=== PATIENT | female | born 1980 ===

== ENCOUNTER 2018-05-11 20:47 | Inpatient (IN) | payer MEDICAID ==
[~2018-05-11] VITALS: Ht 172.7 cm; Wt 153.3 kg
--- NOTE | ~2018-05-11 | MORECARE ---
CASE MANAGEMENT DISCHARGE SUMMARY PATIENT: RILEY CURRIE UNIT: [id number] ADM DATE: 05/11/18 AGE: 37 : [birth year] SEX: F ROOM/BED: D.2206 AUTHOR: SOILA,DOC PHYSICIAN: REFERRING PHYSICIAN: JARRETT HAWTHORNE MD DATE OF SERVICE: 06/12/18 Discharge Plan Patient Name: RILEY CURRIE Facility: [facility]:[place] : 1980 Planned Disposition: Home Anticipated Discharge Date: Discharge Date: 06/09/2018 Expected LOS: Initial Reviewer: [email or web address] Initial Review Date: 05/16/2018 Generated: 06/12/18 12:19 pm Comments DCP- Discharge Planning Updated by [email or web address]: Najma Jones on 06/09/18 2:[address] patient is discharging home today, family will pick patient up. Nebulizer has been delivered to the hospital. [facility] in [place] has accepted patient and will admit her. No sullpies needed per dr bonds, CM will continue to follow and assist with dc planning as needed DCP- Discharge Planning Updated by [email or web address]: Najma Jones on 06/08/18 1:[address] referral sent to [facility] in [place], spoke with Mitesh ) Clinical info sent, will need to send dc summary and home health order when received. Faxed to [phone]. CM will continue to follow and assist with DC planning DCP- Discharge Planning Updated by [email or web address]: Najma Jones on 06/08/18 11:[address] ORDER SENT TO [facility] FOR A NEBULIZER, PATIENT WOULD LIKE IN [place], WILL SET THAT UP FOR HER. DCP- Discharge Planning Updated by [email or web address]: Audrey Leyva on 06/05/18 1:[address] CM was informed by nursing staff that patient's 15yo daughter has been living at the hospital and is staying in the ICU waiting room during non-visitation hours without adult supervision. Staff reports child does not have any means to obtain food and they are worried about her. CM met with patient and her daughter and explained that the child can not stay at the hospital unsupervised. Patient was previously informed of this and was supposed to have a family member milk pickup driver the child this weekend. Patient called her sister who agreed to come milk pickup driver the child today around 16:30. CM informed patient that if the child is not picked up by 17:00 that CM will call [facility]. Patient verbalized understanding but with lots of profanity stated she was not going to let the hospital call DHS on her child. CM will continue to follow. DCP- Discharge Planning Updated by [email or web address]: Sweetieleanne Pike on 05/30/18 12:[address] CM met with sister Shanna Mathis while in room with patient. Patient is alert but still on vent via trach. Explained that patient will only be accepted to an LTACH facility on a freedom bed basis. Because patient only has Medicaid and it doesn't cover LTACH. CM explained that if the patient still needed help once she is off vent then that NH placement maybe an option. Sister agreed that if she had to go to NH she would like it to be in [place]. CM will continue to follow and assist as needed with discharge planning/ needs. DCP- Discharge Planning Updated by [email or web address]: Aaliyah Varghese on 05/16/18 2:[address] Patient Name: RILEY CURRIE Admission Status: Accout number: [id number] Admission Date: 05-11-2018 : 1980 Admission Diagnosis:ACUTE RESPIRATORY FAILURE WITH HYPERCAPNIA Attending: JARRETT HAWTHORNE Current LOS: 5 Anticipated DC Date: Planned Disposition: Primary Insurance: MEDICAID [place] Discharge Planning Comments: Patient is on ventilator. CM met with patient's sister Declan about dc planning. States unsure of the plan at this time, she hopes she will dc to home. The patient and family members live in [place] area. CM will follow and assist as needed with dc planning/needs. Picking Machine Operator: Aaliyah Varghese DCPIA - Discharge Planning Initial Assessment Updated by [email or web address]: Aaliyah Varghese on 05/16/18 3:42 pm * Is the patient Alert and Oriented? No * PCP Hilaria * [facility] in [place] * Preadmission Environment Home with Family * ADLs Independent * List name and contact numbers for known caregivers / representatives who currently or will assist patient after discharge: sister Manriquez, * Has this patient been hospitalized within the prior 30 days at any hospital? No Last DP export: 06/09/18 2:26 Patient Name: RILEY CURRIE Page [id number] at 1119 All edits/amendments must be made on the electronic document DICTATION DATE: 06/12/181117 NAUTICAL INSTRUMENT MECHANIC: EFRA 06/12/181117 RPT#: [id number] DC DATE:06/09/18 STATUS: DIS IN [facility] [address] [place] [address] END OF REPORT
--- NOTE | ~2018-05-11 | OP ---
PATIENT NAME: RILEY CURRIE MEDICAL RECORD: [id number] :80 LOCATION:[facility] D.[id number] ADMISSION DATE:05/11/18 SURGEON: CARMELO GARLAND MD DATE OF OPERATION: 05/18/2018 PREOPERATIVE DIAGNOSES: 1. Acute respiratory failure on the ventilator. 2. Pneumonia. 3. Morbid obesity. POSTOPERATIVE DIAGNOSES: 1. Acute respiratory failure on the ventilator. 2. Pneumonia. 3. Morbid obesity. PROCEDURE: 8-Greenlandic percutaneous tracheostomy placement. SURGEON: Carmelo Garland MD REPORT OF PROCEDURE: The patient's neck was prepped and draped in sterile fashion and a bronchoscope was advanced through the endotracheal tube, it was indwelling and this was backed up into position. A skin incision was made longitudinally in the midline, a couple of fingerbreadths above the sternal notch. Using blunt dissection, I could feel down to what appeared to be the cricopharyngeal ring. We inserted an Angiocath needle under direct visualization, a couple of rings below this. A guidewire was then advanced with ease. Over this wire, a small dilator was placed. At this point, there was some venous blood flow that was noted around the neck. We went ahead and advanced the white Rhino dilator and the 8-Greenlandic endotracheal tube. These advanced through with ease and rested in good position. At this point, the bleeding discontinued. The balloon was inflated and we continued a bronchoscopy removing any blood clots that were present in the trachea. At the conclusion of the case, we sutured down the trach with 2-0 Prolenes on all 4 corners and there was no sign of any active surgical bleeding. COMPLICATIONS: None. CONDITION: Stable. ANESTHESIA: General endotracheal. BLOOD LOSS: 50 mL. TRANSINT:[id number] Voice Confirmation ID: [id number] DOCUMENT ID: [id number] CARMELO GARLAND MD at 1714 CC: [id number] DICTATION DATE: 05/18/18 1547 CHILD WELFARE DIRECTOR: 05/18/18 1556 ADM IN [facility] [address] [place] [address]
--- NOTE | ~2018-05-11 | MORECARE ---
CASE MANAGEMENT DISCHARGE SUMMARY PATIENT: RILEY CURRIE UNIT: [id number] ADM DATE: 05/11/18 AGE: 37 : [birth year] SEX: F ROOM/BED: D.2206 AUTHOR: SOILA,DOC PHYSICIAN: REFERRING PHYSICIAN: JARRETT HAWTHORNE MD DATE OF SERVICE: 06/09/18 Discharge Plan Patient Name: RILEY CURRIE Facility: [facility]:[place] : 1980 Planned Disposition: Home Anticipated Discharge Date: Discharge Date: Expected LOS: Initial Reviewer: [email or web address] Initial Review Date: 05/16/2018 Generated: 06/09/18 4:26 pm Comments DCP- Discharge Planning Updated by [email or web address]: Najma Jones on 06/09/18 2:[address] patient is discharging home today, family will pick patient up. Nebulizer has been delivered to the hospital. [facility] in [place] has accepted patient and will admit her. No sullpies needed per dr bonds, CM will continue to follow and assist with dc planning as needed DCP- Discharge Planning Updated by [email or web address]: Najma Jones on 06/08/18 1:[address] referral sent to [facility] in [place], spoke with Mitesh ) Clinical info sent, will need to send dc summary and home health order when received. Faxed to [phone]. CM will continue to follow and assist with DC planning DCP- Discharge Planning Updated by [email or web address]: Najma Jones on 06/08/18 11:[address] ORDER SENT TO [facility] FOR A NEBULIZER, PATIENT WOULD LIKE IN [place], WILL SET THAT UP FOR HER. DCP- Discharge Planning Updated by [email or web address]: Audrey Leyva on 06/05/18 1:[address] CM was informed by nursing staff that patient's 15yo daughter has been living at the hospital and is staying in the ICU waiting room during non-visitation hours without adult supervision. Staff reports child does not have any means to obtain food and they are worried about her. CM met with patient and her daughter and explained that the child can not stay at the hospital unsupervised. Patient was previously informed of this and was supposed to have a family member picker packer the child this weekend. Patient called her sister who agreed to come picker packer the child today around 16:30. CM informed patient that if the child is not picked up by 17:00 that CM will call [facility]. Patient verbalized understanding but with lots of profanity stated she was not going to let the hospital call DHS on her child. CM will continue to follow. DCP- Discharge Planning Updated by [id number]: Sweetie Pike on 05/30/18 12:[address] CM met with sister Shanna Mathis while in room with patient. Patient is alert but still on vent via trach. Explained that patient will only be accepted to an LTACH facility on a freedom bed basis. Because patient only has Medicaid and it doesn't cover LTACH. CM explained that if the patient still needed help once she is off vent then that NH placement maybe an option. Sister agreed that if she had to go to NH she would like it to be in [place]. CM will continue to follow and assist as needed with discharge planning/ needs. DCP- Discharge Planning Updated by [id number]: Aaliyah Varghese on 05/16/18 2:[address] Patient Name: RILEY CURRIE Admission Status: Accout number: [id number] Admission Date: 05-11-2018 : 1980 Admission Diagnosis:ACUTE RESPIRATORY FAILURE WITH HYPERCAPNIA Attending: JARRETT HAWTHORNE Current LOS: 5 Anticipated DC Date: Planned Disposition: Primary Insurance: MEDICAID [place] Discharge Planning Comments: Patient is on ventilator. CM met with patient's sister Declan about dc planning. States unsure of the plan at this time, she hopes she will dc to home. The patient and family members live in [place] area. CM will follow and assist as needed with dc planning/needs. Dopeman: Aaliyah Varghese DCPIA - Discharge Planning Initial Assessment Updated by [email or web address]: Aaliyah Halima on 05/16/18 3:42 pm * Is the patient Alert and Oriented? No * PCP Hilaria * [facility] in [place] * Preadmission Environment Home with Family * ADLs Independent * List name and contact numbers for known caregivers / representatives who currently or will assist patient after discharge: Declan, sister, * Has this patient been hospitalized within the prior 30 days at any hospital? No Last DP export: 06/08/18 1:24 Patient Name: RILEY CURRIE Page [id number] at 1526 All edits/amendments must be made on the electronic document DICTATION DATE: 06/09/181525 TERRAZZO WORKER: EFRA 06/09/181525 RPT#: [id number] DC DATE: STATUS: ADM IN [facility] [address] [place] [address] END OF REPORT
[2018-05-11 22:31] VITALS: BP 84/73; BMI 50.0
[2018-05-11] MEDS ORDERED: TEGRETOL 100 M100 MG (22:40)
[2018-05-11] MEDS ORDERED: NORCO 7.5/325 T1 TA1 (22:41)
[2018-05-11 23:00] VITALS: BP 103/61
[2018-05-11 23:30] VITALS: BP 123/72
[2018-05-11 23:36] LABS: CREATINE KINASE 73 UL (21-215); PRO BNP 535 pg/mL (0-125)
[2018-05-11 23:38] LABS: TROPONIN-I < 0.017 ng/mL (0.000-0.060)
[2018-05-11 23:42] LABS: BASOPHILS 0.1 % (0-2); EOSINOPHILS 0 % (0-7); HEMATOCRIT 38.1 % (36.0-48.0); HEMOGLOBIN 12.3 g/dL (12-16); IMMATURE GRANULOCYTES 0.9 % (0-5); LYMPHOCYTES 13.7 % (15-50); MCH 30.1 pg (26.0-34.0); MCHC 32.3 g/dL (31.0-37.0); MCV 93.4 fL (80.0-100.0); MEAN PLATELET VOLUME 9.4 fL (7.4-10.4); MONOCYTES 5.7 % (2-11); NEUTROPHILS 79.6 % (40-80); PLATELET COUNT 332 10x3/uL (130-400); RBC 4.08 10x6/uL (4.00-5.40); RDW 14.2 % (11.5-14.5); WBC 13.8 10x3/uL (4.8-10.8)
[2018-05-12] VITALS (26 sets, daily range): BP systolic 106–159; BP diastolic 45–100; Ht 172.7 cm; Wt 153.3 kg
[2018-05-12 00:13] LABS: ALBUMIN 2.6 g/dL (3.4-5.0); ANION GAP 13.7 mmol/L (8-16); BILIRUBIN - TOTAL 0.25 mg/dL (0.2-1.3); CALCIUM 7.4 mg/dL (8.5-10.1); CREATININE - SERUM 1.2 mg/dL (0.6-1.3); POTASSIUM - SERUM 3.7 mmol/L (3.5-5.1); PROTEIN - SERUM 7.2 g/dL (6.4-8.2)
[2018-05-13] VITALS (25 sets, daily range): BP systolic 109–155; BP diastolic 51–88
[2018-05-13 05:10] LABS: BASOPHILS 0.1 % (0-2); EOSINOPHILS 1.1 % (0-7); HEMATOCRIT 34.2 % (36.0-48.0); HEMOGLOBIN 10.9 g/dL (12-16); IMMATURE GRANULOCYTES 0.4 % (0-5); LYMPHOCYTES 20.1 % (15-50); MCH 29.5 pg (26.0-34.0); MCHC 31.9 g/dL (31.0-37.0); MCV 92.7 fL (80.0-100.0); MEAN PLATELET VOLUME 9.5 fL (7.4-10.4); MONOCYTES 7.1 % (2-11); NEUTROPHILS 71.2 % (40-80); PLATELET COUNT 296 10x3/uL (130-400); RBC 3.69 10x6/uL (4.00-5.40)
[2018-05-13 05:24] LABS: WBC 9.1 10x3/uL (4.8-10.8)
[2018-05-13 05:38] LABS: ALBUMIN 2.2 g/dL (3.4-5.0); ALKALINE PHOSPHATASE 56 U/L (46-116); ALT (SGPT) 21 U/L (10-68); AMYLASE - SERUM 31 U/L (25-115); CALC OSMOLALITY 286 mosm/kg (275-300); CALCIUM 7.7 mg/dL (8.5-10.1); CARBON DIOXIDE 29.1 mmol/L (21.0-32.0); CHLORIDE - SERUM 102 mmol/L (98-107); CREATININE - SERUM 0.9 mg/dL (0.6-1.3); GLUCOSE 116 mg/dL (74-106); LIPASE 69 U/L (73-393); MAGNESIUM - SERUM 2.1 mg/dL (1.8-2.4); PHOSPHOROUS 2.5 mg/dL (2.5-4.9); PRO BNP 21 pg/mL (0-125); PROTEIN - SERUM 6.7 g/dL (6.4-8.2); SODIUM 143 mmol/L (136-145); THYROID STIMULATING HORMONE 1.54 uIU/mL (0.36-3.74); UREA NITROGEN 14 mg/dL (7-18); eGFR NON AFRICAN AMERICAN 75 mL/min (90-120)
[2018-05-13 05:39] LABS: TROPONIN-I < 0.017 ng/mL (0.000-0.060)
[2018-05-14] VITALS (23 sets, daily range): BP systolic 103–135; BP diastolic 45–69
[2018-05-14 05:19] LABS: BASOPHILS 0.2 % (0-2); EOSINOPHILS 4.6 % (0-7); HEMATOCRIT 35.6 % (36.0-48.0); HEMOGLOBIN 11.2 g/dL (12-16); IMMATURE GRANULOCYTES 0.7 % (0-5); LYMPHOCYTES 21.9 % (15-50); MCH 29.6 pg (26.0-34.0); MCHC 31.5 g/dL (31.0-37.0); MCV 93.9 fL (80.0-100.0); MEAN PLATELET VOLUME 9.6 fL (7.4-10.4); MONOCYTES 7.3 % (2-11); NEUTROPHILS 65.3 % (40-80); PLATELET COUNT 337 10x3/uL (130-400); RBC 3.79 10x6/uL (4.00-5.40); RDW 13.8 % (11.5-14.5)
[2018-05-14 05:36] LABS: ALBUMIN 2.2 g/dL (3.4-5.0); ALKALINE PHOSPHATASE 54 U/L (46-116); ALT (SGPT) 16 U/L (10-68); BILIRUBIN - TOTAL 0.56 mg/dL (0.2-1.3); CALC OSMOLALITY 288 mosm/kg (275-300); CALCIUM 8.1 mg/dL (8.5-10.1); CARBON DIOXIDE 30.1 mmol/L (21.0-32.0); CHLORIDE - SERUM 103 mmol/L (98-107); CREATININE - SERUM 0.7 mg/dL (0.6-1.3); GLUCOSE 123 mg/dL (74-106); MAGNESIUM - SERUM 2.3 mg/dL (1.8-2.4); POTASSIUM - SERUM 3.5 mmol/L (3.5-5.1); PROTEIN - SERUM 7.1 g/dL (6.4-8.2); SODIUM 144 mmol/L (136-145); UREA NITROGEN 15 mg/dL (7-18); eGFR NON AFRICAN AMERICAN > 90 mL/min (90-120)
[2018-05-15] VITALS (24 sets, daily range): BP systolic 104–136; BP diastolic 50–68
[2018-05-15 04:47] LABS: BASOPHILS 0.1 % (0-2); EOSINOPHILS 5.1 % (0-7); HEMATOCRIT 34.2 % (36.0-48.0); HEMOGLOBIN 10.8 g/dL (12-16); IMMATURE GRANULOCYTES 1.3 % (0-5); LYMPHOCYTES 22.5 % (15-50); MCH 29.8 pg (26.0-34.0); MCHC 31.6 g/dL (31.0-37.0); MCV 94.2 fL (80.0-100.0); MEAN PLATELET VOLUME 9.6 fL (7.4-10.4); MONOCYTES 8.7 % (2-11); NEUTROPHILS 62.3 % (40-80); PLATELET COUNT 333 10x3/uL (130-400); RBC 3.63 10x6/uL (4.00-5.40); RDW 13.8 % (11.5-14.5); WBC 10.9 10x3/uL (4.8-10.8)
[2018-05-15 05:13] LABS: CALC OSMOLALITY 286 mosm/kg (275-300); CALCIUM 8.1 mg/dL (8.5-10.1); CARBON DIOXIDE 31.3 mmol/L (21.0-32.0); CHLORIDE - SERUM 103 mmol/L (98-107); CREATININE - SERUM 0.8 mg/dL (0.6-1.3); GLUCOSE 128 mg/dL (74-106); POTASSIUM - SERUM 3.7 mmol/L (3.5-5.1); SODIUM 142 mmol/L (136-145); TRIGLYCERIDE 172 mg/dL (30-200); UREA NITROGEN 18 mg/dL (7-18); eGFR NON AFRICAN AMERICAN 85 mL/min (90-120)
[2018-05-16] VITALS (37 sets, daily range): BP systolic 103–149; BP diastolic 45–76
[2018-05-16 05:32] LABS: BASOPHILS 0.1 % (0-2); EOSINOPHILS 4.8 % (0-7); HEMATOCRIT 33.4 % (36.0-48.0); HEMOGLOBIN 10.4 g/dL (12-16); IMMATURE GRANULOCYTES 3.1 % (0-5); LYMPHOCYTES 19.3 % (15-50); MCH 29.7 pg (26.0-34.0); MCHC 31.1 g/dL (31.0-37.0); MCV 95.4 fL (80.0-100.0); MEAN PLATELET VOLUME 9.8 fL (7.4-10.4); MONOCYTES 9.7 % (2-11); PLATELET COUNT 353 10x3/uL (130-400); RDW 13.9 % (11.5-14.5)
[2018-05-16 06:11] LABS: CALC OSMOLALITY 292 mosm/kg (275-300); CALCIUM 8.3 mg/dL (8.5-10.1); CARBON DIOXIDE 31.8 mmol/L (21.0-32.0); CHLORIDE - SERUM 106 mmol/L (98-107); CREATININE - SERUM 0.7 mg/dL (0.6-1.3); GLUCOSE 127 mg/dL (74-106); SODIUM 145 mmol/L (136-145); UREA NITROGEN 18 mg/dL (7-18); eGFR NON AFRICAN AMERICAN > 90 mL/min (90-120)
[2018-05-17] VITALS (36 sets, daily range): BP systolic 116–165; BP diastolic 56–81
[2018-05-17 05:24] LABS: BASOPHILS 0.1 % (0-2); EOSINOPHILS 4.4 % (0-7); HEMATOCRIT 31.4 % (36.0-48.0); HEMOGLOBIN 9.9 g/dL (12-16); IMMATURE GRANULOCYTES 3.3 % (0-5); LYMPHOCYTES 22.2 % (15-50); MCH 29.6 pg (26.0-34.0); MCHC 31.5 g/dL (31.0-37.0); MEAN PLATELET VOLUME 9.9 fL (7.4-10.4); MONOCYTES 8.3 % (2-11); NEUTROPHILS 61.7 % (40-80); PLATELET COUNT 364 10x3/uL (130-400); RBC 3.34 10x6/uL (4.00-5.40); RDW 13.9 % (11.5-14.5); WBC 10.4 10x3/uL (4.8-10.8)
[2018-05-17 05:34] LABS: CALC OSMOLALITY 289 mosm/kg (275-300); CALCIUM 8.1 mg/dL (8.5-10.1); CARBON DIOXIDE 30.6 mmol/L (21.0-32.0); CHLORIDE - SERUM 107 mmol/L (98-107); CREATININE - SERUM 0.7 mg/dL (0.6-1.3); GLUCOSE 135 mg/dL (74-106); POTASSIUM - SERUM 3.8 mmol/L (3.5-5.1); SODIUM 144 mmol/L (136-145); UREA NITROGEN 16 mg/dL (7-18); eGFR NON AFRICAN AMERICAN > 90 mL/min (90-120)
[2018-05-17 07:04] LABS: APPEARANCE HAZY (CLEAR); BACTERIA FEW /hpf (NONE SEEN); BILIRUBIN NEGATIVE (NEGATIVE); COLOR DK YELLOW (YELLOW); EPITHELIAL CELLS 0-5 /hpf (0-5); GLUCOSE NEGATIVE (NEGATIVE); KETONE NEGATIVE (NEGATIVE); NITRITE NEGATIVE (NEGATIVE); PROTEIN 2+ mg/dL (NEGATIVE); WHITE CELLS - URINE NSEEN /hpf (0-5); YEAST NONE SEEN /hpf (NONE SEEN)
[2018-05-17 07:05] LABS: GRANULAR CAST NONE SEEN /lpf (NONE SEEN); HYALINE CAST OCC /lpf (NONE SEEN); MUCUS <1+ /lpf (NONE SEEN); RED CELL CAST NONE SEEN /lpf (NONE SEEN); SPERMATOZOA NONE SEEN /hpf (NONE SEEN); WAXY CAST NONE SEEN /lpf (NONE SEEN)
[2018-05-17 07:06] LABS: AMORPHOUS SEDIMENT <1+ /lpf (NONE SEEN); CALCIUM OXALATE CRYSTALS NONE SEEN /hpf (NONE SEEN); CHOLESTEROL CRYSTALS NONE SEEN /hpf (NONE SEEN); EPITHELIAL CELL CAST OCC /lpf (NONE SEEN); TALC POWDER CRYSTALS NONE SEEN /hpf (NONE SEEN); TRIPLE PHOSPHATE CRYSTALS NONE SEEN /hpf (NONE SEEN); URIC ACID CRYSTALS NSEEN /hpf (NONE SEEN)
[2018-05-17 14:24] LABS: SPECIMEN SOURCE Urine (())
[2018-05-17 22:07] LABS: MYCOPLASMA PNEUMO IGG 226 U/mL (0-99)
[2018-05-18] VITALS (24 sets, daily range): BP systolic 117–168; BP diastolic 51–90
[2018-05-18 04:57] LABS: BASOPHILS 0.1 % (0-2); EOSINOPHILS 3.5 % (0-7); HEMATOCRIT 31.6 % (36.0-48.0); IMMATURE GRANULOCYTES 2.5 % (0-5); LYMPHOCYTES 15.2 % (15-50); MCH 29.6 pg (26.0-34.0); MCHC 31.6 g/dL (31.0-37.0); MCV 93.5 fL (80.0-100.0); MEAN PLATELET VOLUME 10.1 fL (7.4-10.4); MONOCYTES 9.6 % (2-11); NEUTROPHILS 69.1 % (40-80); PLATELET COUNT 402 10x3/uL (130-400); RBC 3.38 10x6/uL (4.00-5.40); RDW 14.1 % (11.5-14.5); WBC 10.5 10x3/uL (4.8-10.8)
[2018-05-18 05:29] LABS: CALC OSMOLALITY 295 mosm/kg (275-300); CALCIUM 8.6 mg/dL (8.5-10.1); CARBON DIOXIDE 29.5 mmol/L (21.0-32.0); CHLORIDE - SERUM 109 mmol/L (98-107); CREATININE - SERUM 0.7 mg/dL (0.6-1.3); GLUCOSE 147 mg/dL (74-106); POTASSIUM - SERUM 3.8 mmol/L (3.5-5.1); SODIUM 147 mmol/L (136-145); UREA NITROGEN 16 mg/dL (7-18); eGFR NON AFRICAN AMERICAN > 90 mL/min (90-120)
[2018-05-19] VITALS (30 sets, daily range): BP systolic 103–142; BP diastolic 54–88
[2018-05-19 05:08] LABS: BASOPHILS 0.2 % (0-2); EOSINOPHILS 3.8 % (0-7); HEMATOCRIT 29.5 % (36.0-48.0); HEMOGLOBIN 9.2 g/dL (12-16); IMMATURE GRANULOCYTES 1.6 % (0-5); LYMPHOCYTES 16.9 % (15-50); MCH 29.2 pg (26.0-34.0); MCHC 31.2 g/dL (31.0-37.0); MCV 93.7 fL (80.0-100.0); MEAN PLATELET VOLUME 9.6 fL (7.4-10.4); MONOCYTES 8.2 % (2-11); NEUTROPHILS 69.3 % (40-80); PLATELET COUNT 416 10x3/uL (130-400); RBC 3.15 10x6/uL (4.00-5.40); RDW 14.3 % (11.5-14.5); WBC 10.4 10x3/uL (4.8-10.8)
[2018-05-19 05:14] LABS: CALC OSMOLALITY 297 mosm/kg (275-300); CALCIUM 8.4 mg/dL (8.5-10.1); CARBON DIOXIDE 32.6 mmol/L (21.0-32.0); CHLORIDE - SERUM 110 mmol/L (98-107); CREATININE - SERUM 0.7 mg/dL (0.6-1.3); GLUCOSE 136 mg/dL (74-106); POTASSIUM - SERUM 4.1 mmol/L (3.5-5.1); SODIUM 148 mmol/L (136-145); UREA NITROGEN 17 mg/dL (7-18); eGFR NON AFRICAN AMERICAN > 90 mL/min (90-120)
[2018-05-19 17:12] LABS: ANCA - ANTIMYELOPEROXIDASE <9.0 U/mL (0.0-9.0); ANCA - ANTIPROTEINASE 3 <3.5 U/mL (0.0-3.5); ANCA - ATYPICAL <1:20 titer (Neg:<1:20); ANCA - CYTOPLASMIC <1:20 titer (Neg:<1:20); ANCA - PERINUCLEAR <1:20 titer (Neg:<1:20)
[2018-05-20] VITALS (24 sets, daily range): BP systolic 101–121; BP diastolic 51–70
[2018-05-20 05:31] LABS: BASOPHILS 0.2 % (0-2); EOSINOPHILS 4.4 % (0-7); HEMATOCRIT 28.2 % (36.0-48.0); HEMOGLOBIN 8.8 g/dL (12-16); LYMPHOCYTES 16.2 % (15-50); MCH 29.4 pg (26.0-34.0); MCHC 31.2 g/dL (31.0-37.0); MCV 94.3 fL (80.0-100.0); MEAN PLATELET VOLUME 9.6 fL (7.4-10.4); MONOCYTES 9.5 % (2-11); NEUTROPHILS 68.7 % (40-80); PLATELET COUNT 422 10x3/uL (130-400); RBC 2.99 10x6/uL (4.00-5.40); RDW 14.5 % (11.5-14.5); WBC 10.7 10x3/uL (4.8-10.8)
[2018-05-20 05:52] LABS: CALC OSMOLALITY 294 mosm/kg (275-300); CALCIUM 8.5 mg/dL (8.5-10.1); CARBON DIOXIDE 29.8 mmol/L (21.0-32.0); CHLORIDE - SERUM 109 mmol/L (98-107); CREATININE - SERUM 0.7 mg/dL (0.6-1.3); GLUCOSE 127 mg/dL (74-106); POTASSIUM - SERUM 3.7 mmol/L (3.5-5.1); SODIUM 147 mmol/L (136-145); UREA NITROGEN 16 mg/dL (7-18); eGFR NON AFRICAN AMERICAN > 90 mL/min (90-120)
[2018-05-21] VITALS (24 sets, daily range): BP systolic 99–124; BP diastolic 42–81
[2018-05-21 04:45] LABS: BASOPHILS 0.2 % (0-2); EOSINOPHILS 4.7 % (0-7); HEMATOCRIT 27.6 % (36.0-48.0); HEMOGLOBIN 8.6 g/dL (12-16); IMMATURE GRANULOCYTES 0.9 % (0-5); LYMPHOCYTES 18.2 % (15-50); MCH 29.3 pg (26.0-34.0); MCHC 31.2 g/dL (31.0-37.0); MCV 93.9 fL (80.0-100.0); MEAN PLATELET VOLUME 9.6 fL (7.4-10.4); MONOCYTES 7.2 % (2-11); NEUTROPHILS 68.8 % (40-80); PLATELET COUNT 442 10x3/uL (130-400); RBC 2.94 10x6/uL (4.00-5.40); RDW 14.6 % (11.5-14.5)
[2018-05-21 05:00] LABS: ALBUMIN 2.1 g/dL (3.4-5.0); ALKALINE PHOSPHATASE 45 U/L (46-116); ALT (SGPT) 187 U/L (10-68); BILIRUBIN - TOTAL 0.85 mg/dL (0.2-1.3); CALC OSMOLALITY 291 mosm/kg (275-300); CALCIUM 8.6 mg/dL (8.5-10.1); CARBON DIOXIDE 29.7 mmol/L (21.0-32.0); CHLORIDE - SERUM 108 mmol/L (98-107); CREATININE - SERUM 0.7 mg/dL (0.6-1.3); GLUCOSE 128 mg/dL (74-106); POTASSIUM - SERUM 3.4 mmol/L (3.5-5.1); PROTEIN - SERUM 6.9 g/dL (6.4-8.2); SODIUM 145 mmol/L (136-145); UREA NITROGEN 15 mg/dL (7-18); eGFR NON AFRICAN AMERICAN > 90 mL/min (90-120)
[2018-05-22] VITALS (24 sets, daily range): BP systolic 97–115; BP diastolic 42–63
[2018-05-22 05:27] LABS: BASOPHILS 0.2 % (0-2); EOSINOPHILS 3.7 % (0-7); HEMATOCRIT 25.9 % (36.0-48.0); HEMOGLOBIN 8.1 g/dL (12-16); IMMATURE GRANULOCYTES 0.9 % (0-5); LYMPHOCYTES 13.9 % (15-50); MCH 29.3 pg (26.0-34.0); MCHC 31.3 g/dL (31.0-37.0); MCV 93.8 fL (80.0-100.0); MEAN PLATELET VOLUME 9.1 fL (7.4-10.4); MONOCYTES 7.5 % (2-11); NEUTROPHILS 73.8 % (40-80); PLATELET COUNT 406 10x3/uL (130-400); RBC 2.76 10x6/uL (4.00-5.40); RDW 14.5 % (11.5-14.5); WBC 10.2 10x3/uL (4.8-10.8)
[2018-05-22 06:00] LABS: ALKALINE PHOSPHATASE 51 U/L (46-116); ALT (SGPT) 151 U/L (10-68); BILIRUBIN - TOTAL 0.37 mg/dL (0.2-1.3); CALC OSMOLALITY 286 mosm/kg (275-300); CALCIUM 8.3 mg/dL (8.5-10.1); CARBON DIOXIDE 27.3 mmol/L (21.0-32.0); CHLORIDE - SERUM 108 mmol/L (98-107); CREATININE - SERUM 0.6 mg/dL (0.6-1.3); GLUCOSE 128 mg/dL (74-106); POTASSIUM - SERUM 3.4 mmol/L (3.5-5.1); PROTEIN - SERUM 6.6 g/dL (6.4-8.2); SODIUM 143 mmol/L (136-145); UREA NITROGEN 13 mg/dL (7-18); eGFR NON AFRICAN AMERICAN > 90 mL/min (90-120)
[2018-05-23] VITALS (24 sets, daily range): BP systolic 106–131; BP diastolic 45–77
[2018-05-23 05:04] LABS: BASOPHILS 0.2 % (0-2); EOSINOPHILS 4.3 % (0-7); HEMATOCRIT 25.6 % (36.0-48.0); IMMATURE GRANULOCYTES 1.1 % (0-5); LYMPHOCYTES 14.9 % (15-50); MCH 29.2 pg (26.0-34.0); MCHC 31.3 g/dL (31.0-37.0); MCV 93.4 fL (80.0-100.0); MEAN PLATELET VOLUME 9.5 fL (7.4-10.4); MONOCYTES 7.1 % (2-11); NEUTROPHILS 72.4 % (40-80); PLATELET COUNT 466 10x3/uL (130-400); RBC 2.74 10x6/uL (4.00-5.40); RDW 14.5 % (11.5-14.5); WBC 9.7 10x3/uL (4.8-10.8)
[2018-05-23 05:22] LABS: ALKALINE PHOSPHATASE 56 U/L (46-116); ALT (SGPT) 145 U/L (10-68); BILIRUBIN - TOTAL 0.31 mg/dL (0.2-1.3); CALC OSMOLALITY 283 mosm/kg (275-300); CALCIUM 8.4 mg/dL (8.5-10.1); CARBON DIOXIDE 26.8 mmol/L (21.0-32.0); CHLORIDE - SERUM 107 mmol/L (98-107); CREATININE - SERUM 0.6 mg/dL (0.6-1.3); GLUCOSE 124 mg/dL (74-106); MAGNESIUM - SERUM 1.9 mg/dL (1.8-2.4); PHOSPHOROUS 4.4 mg/dL (2.5-4.9); POTASSIUM - SERUM 3.5 mmol/L (3.5-5.1); PROTEIN - SERUM 6.1 g/dL (6.4-8.2); SODIUM 142 mmol/L (136-145); UREA NITROGEN 12 mg/dL (7-18); eGFR NON AFRICAN AMERICAN > 90 mL/min (90-120)
[2018-05-24] VITALS (23 sets, daily range): BP systolic 105–134; BP diastolic 56–76
[2018-05-24 05:21] LABS: BASOPHILS 0.3 % (0-2); EOSINOPHILS 4.9 % (0-7); HEMOGLOBIN 8.2 g/dL (12-16); IMMATURE GRANULOCYTES 0.9 % (0-5); LYMPHOCYTES 19.6 % (15-50); MCH 29.3 pg (26.0-34.0); MCHC 31.5 g/dL (31.0-37.0); MCV 92.9 fL (80.0-100.0); MEAN PLATELET VOLUME 9.6 fL (7.4-10.4); MONOCYTES 8.2 % (2-11); NEUTROPHILS 66.1 % (40-80); PLATELET COUNT 505 10x3/uL (130-400); RDW 14.3 % (11.5-14.5); WBC 7.9 10x3/uL (4.8-10.8)
[2018-05-24 05:39] LABS: ALBUMIN 2.1 g/dL (3.4-5.0); ALKALINE PHOSPHATASE 53 U/L (46-116); ALT (SGPT) 131 U/L (10-68); BILIRUBIN - TOTAL 0.31 mg/dL (0.2-1.3); CALC OSMOLALITY 279 mosm/kg (275-300); CALCIUM 8.7 mg/dL (8.5-10.1); CARBON DIOXIDE 26.7 mmol/L (21.0-32.0); CHLORIDE - SERUM 105 mmol/L (98-107); CREATININE - SERUM 0.6 mg/dL (0.6-1.3); GLUCOSE 124 mg/dL (74-106); POTASSIUM - SERUM 3.5 mmol/L (3.5-5.1); PROTEIN - SERUM 6.8 g/dL (6.4-8.2); SODIUM 140 mmol/L (136-145); UREA NITROGEN 12 mg/dL (7-18); eGFR NON AFRICAN AMERICAN > 90 mL/min (90-120)
[2018-05-25] VITALS (24 sets, daily range): BP systolic 112–144; BP diastolic 62–89
[2018-05-25 04:56] LABS: BASOPHILS 0.3 % (0-2); EOSINOPHILS 5.5 % (0-7); HEMATOCRIT 25.1 % (36.0-48.0); IMMATURE GRANULOCYTES 0.3 % (0-5); LYMPHOCYTES 24.5 % (15-50); MCHC 31.9 g/dL (31.0-37.0); MEAN PLATELET VOLUME 9.2 fL (7.4-10.4); MONOCYTES 7.6 % (2-11); NEUTROPHILS 61.8 % (40-80); PLATELET COUNT 465 10x3/uL (130-400); RBC 2.76 10x6/uL (4.00-5.40); RDW 14.1 % (11.5-14.5); WBC 6.6 10x3/uL (4.8-10.8)
[2018-05-25 04:57] LABS: MCV 90.9 fL (80.0-100.0)
[2018-05-25 05:18] LABS: ALBUMIN 2.1 g/dL (3.4-5.0); ALKALINE PHOSPHATASE 52 U/L (46-116); ALT (SGPT) 115 U/L (10-68); BILIRUBIN - TOTAL 0.24 mg/dL (0.2-1.3); CALC OSMOLALITY 275 mosm/kg (275-300); CALCIUM 8.5 mg/dL (8.5-10.1); CARBON DIOXIDE 27.1 mmol/L (21.0-32.0); CHLORIDE - SERUM 103 mmol/L (98-107); CREATININE - SERUM 0.6 mg/dL (0.6-1.3); GLUCOSE 118 mg/dL (74-106); PHOSPHOROUS 3.7 mg/dL (2.5-4.9); POTASSIUM - SERUM 3.2 mmol/L (3.5-5.1); PROTEIN - SERUM 6.7 g/dL (6.4-8.2); SODIUM 137 mmol/L (136-145); UREA NITROGEN 14 mg/dL (7-18); eGFR NON AFRICAN AMERICAN > 90 mL/min (90-120)
[2018-05-25 06:02] LABS: ERYTHROCYTE SEDIMENTATION RATE 110 mm/hr (0-20)
[2018-05-25 18:19] LABS: EOS BF 1 %; MESOTHELIALS BF 14 %; NEUT - BF 76 %
[2018-05-26] VITALS (23 sets, daily range): BP systolic 103–131; BP diastolic 52–80
[2018-05-26 12:17] LABS: FUNGUS STAIN Final report (())
[2018-05-26 16:16] LABS: ACID FAST SMEAR Negative (()); AFB SPECIMEN PROCESSING Concentration (())
[2018-05-27] VITALS (24 sets, daily range): BP systolic 102–134; BP diastolic 55–78
[2018-05-27 05:14] LABS: BASOPHILS 0.3 % (0-2); EOSINOPHILS 5.2 % (0-7); HEMATOCRIT 24.9 % (36.0-48.0); HEMOGLOBIN 8.2 g/dL (12-16); IMMATURE GRANULOCYTES 0.6 % (0-5); LYMPHOCYTES 16.7 % (15-50); MCH 29.6 pg (26.0-34.0); MCHC 32.9 g/dL (31.0-37.0); MCV 89.9 fL (80.0-100.0); MEAN PLATELET VOLUME 9.4 fL (7.4-10.4); MONOCYTES 5.5 % (2-11); NEUTROPHILS 71.7 % (40-80); PLATELET COUNT 408 10x3/uL (130-400); RBC 2.77 10x6/uL (4.00-5.40); RDW 13.8 % (11.5-14.5); WBC 6.5 10x3/uL (4.8-10.8)
[2018-05-27 05:36] LABS: CALC OSMOLALITY 270 mosm/kg (275-300); CALCIUM 8.2 mg/dL (8.5-10.1); CARBON DIOXIDE 26.9 mmol/L (21.0-32.0); CHLORIDE - SERUM 102 mmol/L (98-107); CREATININE - SERUM 0.5 mg/dL (0.6-1.3); GLUCOSE 129 mg/dL (74-106); POTASSIUM - SERUM 3.8 mmol/L (3.5-5.1); SODIUM 135 mmol/L (136-145); UREA NITROGEN 11 mg/dL (7-18); eGFR NON AFRICAN AMERICAN > 90 mL/min (90-120)
[2018-05-28] VITALS (22 sets, daily range): BP systolic 121–156; BP diastolic 68–94
[2018-05-28 06:21] LABS: BASOPHILS 0.1 % (0-2); HEMATOCRIT 25.5 % (36.0-48.0); HEMOGLOBIN 8.3 g/dL (12-16); IMMATURE GRANULOCYTES 1.3 % (0-5); MCH 29.2 pg (26.0-34.0); MCHC 32.5 g/dL (31.0-37.0); MCV 89.8 fL (80.0-100.0); MEAN PLATELET VOLUME 9.1 fL (7.4-10.4); NEUTROPHILS 77.6 % (40-80); PLATELET COUNT 482 10x3/uL (130-400); RBC 2.84 10x6/uL (4.00-5.40); WBC 7.7 10x3/uL (4.8-10.8)
[2018-05-28 06:38] LABS: CALC OSMOLALITY 269 mosm/kg (275-300); CALCIUM 8.3 mg/dL (8.5-10.1); CARBON DIOXIDE 24.6 mmol/L (21.0-32.0); CHLORIDE - SERUM 101 mmol/L (98-107); GLUCOSE 137 mg/dL (74-106); MAGNESIUM - SERUM 1.9 mg/dL (1.8-2.4); POTASSIUM - SERUM 4.1 mmol/L (3.5-5.1); SODIUM 134 mmol/L (136-145); UREA NITROGEN 13 mg/dL (7-18)
[2018-05-28 06:46] LABS: CREATININE - SERUM 0.7 mg/dL (0.6-1.3); eGFR NON AFRICAN AMERICAN > 90 mL/min (90-120)
[2018-05-29] VITALS (23 sets, daily range): BP systolic 115–153; BP diastolic 64–90
[2018-05-29 04:40] LABS: BASOPHILS 0.1 % (0-2); EOSINOPHILS 1.1 % (0-7); HEMATOCRIT 24.4 % (36.0-48.0); HEMOGLOBIN 7.9 g/dL (12-16); IMMATURE GRANULOCYTES 0.8 % (0-5); LYMPHOCYTES 17.1 % (15-50); MCH 28.9 pg (26.0-34.0); MCHC 32.4 g/dL (31.0-37.0); MCV 89.4 fL (80.0-100.0); MEAN PLATELET VOLUME 9.2 fL (7.4-10.4); MONOCYTES 7.4 % (2-11); NEUTROPHILS 73.5 % (40-80); PLATELET COUNT 491 10x3/uL (130-400); RBC 2.73 10x6/uL (4.00-5.40); RDW 14.2 % (11.5-14.5)
[2018-05-29 04:49] LABS: CALC OSMOLALITY 276 mosm/kg (275-300); CALCIUM 8.5 mg/dL (8.5-10.1); CHLORIDE - SERUM 102 mmol/L (98-107); CREATININE - SERUM 0.6 mg/dL (0.6-1.3); GLUCOSE 124 mg/dL (74-106); SODIUM 138 mmol/L (136-145); UREA NITROGEN 12 mg/dL (7-18); eGFR NON AFRICAN AMERICAN > 90 mL/min (90-120)
[2018-05-29 13:12] LABS: ANA REFLEX - DIRECT Negative (Negative)
[2018-05-30] VITALS (24 sets, daily range): BP systolic 131–167; BP diastolic 58–87
[2018-05-30 04:41] LABS: BASOPHILS 0.1 % (0-2); EOSINOPHILS 0.5 % (0-7); HEMATOCRIT 26.1 % (36.0-48.0); HEMOGLOBIN 8.5 g/dL (12-16); IMMATURE GRANULOCYTES 0.8 % (0-5); LYMPHOCYTES 22.3 % (15-50); MCH 29.2 pg (26.0-34.0); MCHC 32.6 g/dL (31.0-37.0); MCV 89.7 fL (80.0-100.0); MEAN PLATELET VOLUME 9.2 fL (7.4-10.4); MONOCYTES 8.1 % (2-11); NEUTROPHILS 68.2 % (40-80); PLATELET COUNT 510 10x3/uL (130-400); RBC 2.91 10x6/uL (4.00-5.40); RDW 14.2 % (11.5-14.5); WBC 8.6 10x3/uL (4.8-10.8)
[2018-05-30 04:59] LABS: ALBUMIN 2.4 g/dL (3.4-5.0); ALKALINE PHOSPHATASE 65 U/L (46-116); ALT (SGPT) 158 U/L (10-68); BILIRUBIN - TOTAL 0.17 mg/dL (0.2-1.3); CALC OSMOLALITY 273 mosm/kg (275-300); CALCIUM 8.7 mg/dL (8.5-10.1); CARBON DIOXIDE 30.3 mmol/L (21.0-32.0); CHLORIDE - SERUM 100 mmol/L (98-107); CREATININE - SERUM 0.6 mg/dL (0.6-1.3); GLUCOSE 127 mg/dL (74-106); POTASSIUM - SERUM 4.3 mmol/L (3.5-5.1); PROTEIN - SERUM 6.7 g/dL (6.4-8.2); SODIUM 136 mmol/L (136-145); UREA NITROGEN 13 mg/dL (7-18); eGFR NON AFRICAN AMERICAN > 90 mL/min (90-120)
[2018-05-31] VITALS (23 sets, daily range): BP systolic 105–149; BP diastolic 52–88
[2018-05-31 05:04] LABS: BASOPHILS 0.2 % (0-2); EOSINOPHILS 0.7 % (0-7); HEMATOCRIT 28.7 % (36.0-48.0); HEMOGLOBIN 9.3 g/dL (12-16); IMMATURE GRANULOCYTES 1.5 % (0-5); LYMPHOCYTES 25.6 % (15-50); MCH 29.2 pg (26.0-34.0); MCHC 32.4 g/dL (31.0-37.0); MEAN PLATELET VOLUME 9.1 fL (7.4-10.4); MONOCYTES 6.6 % (2-11); NEUTROPHILS 65.4 % (40-80); PLATELET COUNT 555 10x3/uL (130-400); RBC 3.19 10x6/uL (4.00-5.40); RDW 14.2 % (11.5-14.5); WBC 8.9 10x3/uL (4.8-10.8)
[2018-05-31 05:32] LABS: CALC OSMOLALITY 273 mosm/kg (275-300); CALCIUM 8.8 mg/dL (8.5-10.1); CARBON DIOXIDE 29.7 mmol/L (21.0-32.0); CHLORIDE - SERUM 100 mmol/L (98-107); CREATININE - SERUM 0.7 mg/dL (0.6-1.3); GLUCOSE 117 mg/dL (74-106); SODIUM 136 mmol/L (136-145); UREA NITROGEN 14 mg/dL (7-18); eGFR NON AFRICAN AMERICAN > 90 mL/min (90-120)
[2018-06-01] VITALS (21 sets, daily range): BP systolic 109–159; BP diastolic 68–98
[2018-06-01 05:19] LABS: BASOPHILS 0.1 % (0-2); EOSINOPHILS 0.9 % (0-7); HEMATOCRIT 29.8 % (36.0-48.0); HEMOGLOBIN 9.7 g/dL (12-16); IMMATURE GRANULOCYTES 1.3 % (0-5); LYMPHOCYTES 17.1 % (15-50); MCH 29.3 pg (26.0-34.0); MCHC 32.6 g/dL (31.0-37.0); MEAN PLATELET VOLUME 9.2 fL (7.4-10.4); MONOCYTES 7.8 % (2-11); NEUTROPHILS 72.8 % (40-80); PLATELET COUNT 506 10x3/uL (130-400); RBC 3.31 10x6/uL (4.00-5.40); RDW 14.5 % (11.5-14.5)
[2018-06-01 05:41] LABS: CALC OSMOLALITY 269 mosm/kg (275-300); CALCIUM 8.7 mg/dL (8.5-10.1); CARBON DIOXIDE 29.5 mmol/L (21.0-32.0); CHLORIDE - SERUM 96 mmol/L (98-107); CREATININE - SERUM 0.7 mg/dL (0.6-1.3); GLUCOSE 119 mg/dL (74-106); POTASSIUM - SERUM 4.2 mmol/L (3.5-5.1); SODIUM 134 mmol/L (136-145); UREA NITROGEN 16 mg/dL (7-18); eGFR NON AFRICAN AMERICAN > 90 mL/min (90-120)
[2018-06-01 19:11] LABS: ACID FAST SMEAR Negative (()); AFB SPECIMEN PROCESSING Concentration (())
[2018-06-02] VITALS (22 sets, daily range): BP systolic 107–154; BP diastolic 57–104
[2018-06-02 05:52] LABS: BASOPHILS 0.1 % (0-2); EOSINOPHILS 0.4 % (0-7); HEMATOCRIT 31.5 % (36.0-48.0); HEMOGLOBIN 10.3 g/dL (12-16); IMMATURE GRANULOCYTES 1.1 % (0-5); LYMPHOCYTES 12.9 % (15-50); MCH 29.3 pg (26.0-34.0); MCHC 32.7 g/dL (31.0-37.0); MCV 89.7 fL (80.0-100.0); MEAN PLATELET VOLUME 9.2 fL (7.4-10.4); MONOCYTES 7.9 % (2-11); NEUTROPHILS 77.6 % (40-80); PLATELET COUNT 546 10x3/uL (130-400); RBC 3.51 10x6/uL (4.00-5.40); RDW 14.5 % (11.5-14.5); WBC 11.2 10x3/uL (4.8-10.8)
[2018-06-02 05:58] LABS: CALC OSMOLALITY 268 mosm/kg (275-300); CALCIUM 8.9 mg/dL (8.5-10.1); CARBON DIOXIDE 29.9 mmol/L (21.0-32.0); CHLORIDE - SERUM 97 mmol/L (98-107); CREATININE - SERUM 0.6 mg/dL (0.6-1.3); GLUCOSE 132 mg/dL (74-106); POTASSIUM - SERUM 4.3 mmol/L (3.5-5.1); SODIUM 133 mmol/L (136-145); UREA NITROGEN 16 mg/dL (7-18); eGFR NON AFRICAN AMERICAN > 90 mL/min (90-120)
[2018-06-02 14:23] LABS: FUNGUS STAIN Final report (())
[2018-06-03] VITALS (24 sets, daily range): BP systolic 101–133; BP diastolic 57–99
[2018-06-03 03:36] LABS: BASOPHILS 0.1 % (0-2); EOSINOPHILS 0.3 % (0-7); HEMOGLOBIN 10.4 g/dL (12-16); LYMPHOCYTES 21.8 % (15-50); MCH 29.1 pg (26.0-34.0); MCHC 32.5 g/dL (31.0-37.0); MCV 89.4 fL (80.0-100.0); MEAN PLATELET VOLUME 9.1 fL (7.4-10.4); MONOCYTES 6.7 % (2-11); NEUTROPHILS 70.1 % (40-80); PLATELET COUNT 502 10x3/uL (130-400); RBC 3.58 10x6/uL (4.00-5.40); RDW 14.6 % (11.5-14.5); WBC 11.8 10x3/uL (4.8-10.8)
[2018-06-03 03:44] LABS: CALC OSMOLALITY 276 mosm/kg (275-300); CALCIUM 9.3 mg/dL (8.5-10.1); CARBON DIOXIDE 29.4 mmol/L (21.0-32.0); CHLORIDE - SERUM 100 mmol/L (98-107); CREATININE - SERUM 0.7 mg/dL (0.6-1.3); GLUCOSE 121 mg/dL (74-106); POTASSIUM - SERUM 4.4 mmol/L (3.5-5.1); SODIUM 137 mmol/L (136-145); UREA NITROGEN 17 mg/dL (7-18); eGFR NON AFRICAN AMERICAN > 90 mL/min (90-120)
[2018-06-04] VITALS (24 sets, daily range): BP systolic 109–182; BP diastolic 62–96
[2018-06-04 04:35] LABS: BASOPHILS 0.1 % (0-2); EOSINOPHILS 0.2 % (0-7); HEMATOCRIT 31.4 % (36.0-48.0); HEMOGLOBIN 10.3 g/dL (12-16); IMMATURE GRANULOCYTES 1.2 % (0-5); LYMPHOCYTES 28.1 % (15-50); MCH 29.4 pg (26.0-34.0); MCHC 32.8 g/dL (31.0-37.0); MCV 89.7 fL (80.0-100.0); MEAN PLATELET VOLUME 8.8 fL (7.4-10.4); MONOCYTES 8.1 % (2-11); NEUTROPHILS 62.3 % (40-80); PLATELET COUNT 471 10x3/uL (130-400); RDW 14.8 % (11.5-14.5); WBC 12.7 10x3/uL (4.8-10.8)
[2018-06-04 04:43] LABS: CALC OSMOLALITY 277 mosm/kg (275-300); CHLORIDE - SERUM 99 mmol/L (98-107); CREATININE - SERUM 0.7 mg/dL (0.6-1.3); GLUCOSE 111 mg/dL (74-106); POTASSIUM - SERUM 3.8 mmol/L (3.5-5.1); SODIUM 137 mmol/L (136-145); eGFR NON AFRICAN AMERICAN > 90 mL/min (90-120)
[2018-06-04 04:44] LABS: UREA NITROGEN 22 mg/dL (7-18)
[2018-06-05] VITALS (16 sets, daily range): BP systolic 97–139; BP diastolic 57–97
[2018-06-05 05:26] LABS: BASOPHILS 0.1 % (0-2); EOSINOPHILS 0.3 % (0-7); HEMATOCRIT 30.7 % (36.0-48.0); HEMOGLOBIN 10.1 g/dL (12-16); IMMATURE GRANULOCYTES 1.1 % (0-5); LYMPHOCYTES 26.8 % (15-50); MCH 29.5 pg (26.0-34.0); MCHC 32.9 g/dL (31.0-37.0); MCV 89.8 fL (80.0-100.0); MEAN PLATELET VOLUME 9.2 fL (7.4-10.4); MONOCYTES 8.5 % (2-11); NEUTROPHILS 63.2 % (40-80); PLATELET COUNT 465 10x3/uL (130-400); RBC 3.42 10x6/uL (4.00-5.40); RDW 15.1 % (11.5-14.5); WBC 12.8 10x3/uL (4.8-10.8)
[2018-06-05 05:37] LABS: CALC OSMOLALITY 275 mosm/kg (275-300); CALCIUM 9.1 mg/dL (8.5-10.1); CARBON DIOXIDE 27.7 mmol/L (21.0-32.0); CHLORIDE - SERUM 101 mmol/L (98-107); CREATININE - SERUM 0.7 mg/dL (0.6-1.3); GLUCOSE 98 mg/dL (74-106); SODIUM 137 mmol/L (136-145); UREA NITROGEN 19 mg/dL (7-18); eGFR NON AFRICAN AMERICAN > 90 mL/min (90-120)
[2018-06-05 06:06] LABS: VIRAL - RESULT No virus isolated. (())
[2018-06-06 05:31] VITALS: BP 134/84
[2018-06-06 08:08] VITALS: BP 116/72
[2018-06-06 08:57] LABS: BASOPHILS 0.1 % (0-2); EOSINOPHILS 1.8 % (0-7); HEMATOCRIT 31.1 % (36.0-48.0); HEMOGLOBIN 9.9 g/dL (12-16); IMMATURE GRANULOCYTES 1.2 % (0-5); LYMPHOCYTES 35.9 % (15-50); MCH 29.1 pg (26.0-34.0); MCHC 31.8 g/dL (31.0-37.0); MCV 91.5 fL (80.0-100.0); MEAN PLATELET VOLUME 9.2 fL (7.4-10.4); MONOCYTES 8.2 % (2-11); NEUTROPHILS 52.8 % (40-80); PLATELET COUNT 435 10x3/uL (130-400); RDW 15.2 % (11.5-14.5)
[2018-06-06 09:05] LABS: CALC OSMOLALITY 278 mosm/kg (275-300); CALCIUM 8.5 mg/dL (8.5-10.1); CARBON DIOXIDE 26.8 mmol/L (21.0-32.0); CHLORIDE - SERUM 104 mmol/L (98-107); CREATININE - SERUM 0.6 mg/dL (0.6-1.3); GLUCOSE 87 mg/dL (74-106); POTASSIUM - SERUM 3.9 mmol/L (3.5-5.1); SODIUM 139 mmol/L (136-145); UREA NITROGEN 18 mg/dL (7-18); eGFR NON AFRICAN AMERICAN > 90 mL/min (90-120)
[2018-06-06 12:04] VITALS: BP 122/80
[2018-06-06 20:06] VITALS: BP 124/84
[2018-06-07 05:49] VITALS: BP 86/53
[2018-06-07 06:13] LABS: BASOPHILS 0.1 % (0-2); EOSINOPHILS 1.4 % (0-7); HEMATOCRIT 30.4 % (36.0-48.0); HEMOGLOBIN 9.7 g/dL (12-16); LYMPHOCYTES 33.2 % (15-50); MCH 29.1 pg (26.0-34.0); MCHC 31.9 g/dL (31.0-37.0); MCV 91.3 fL (80.0-100.0); MONOCYTES 9.2 % (2-11); NEUTROPHILS 55.1 % (40-80); PLATELET COUNT 379 10x3/uL (130-400); RBC 3.33 10x6/uL (4.00-5.40); RDW 15.3 % (11.5-14.5); WBC 12.6 10x3/uL (4.8-10.8)
[2018-06-07 06:36] LABS: CALC OSMOLALITY 276 mosm/kg (275-300); CALCIUM 8.6 mg/dL (8.5-10.1); CARBON DIOXIDE 23.3 mmol/L (21.0-32.0); CHLORIDE - SERUM 103 mmol/L (98-107); CREATININE - SERUM 0.6 mg/dL (0.6-1.3); GLUCOSE 100 mg/dL (74-106); POTASSIUM - SERUM 3.8 mmol/L (3.5-5.1); SODIUM 138 mmol/L (136-145); UREA NITROGEN 15 mg/dL (7-18); eGFR NON AFRICAN AMERICAN > 90 mL/min (90-120)
[2018-06-07 08:20] VITALS: BP 138/68
[2018-06-07 12:38] VITALS: BP 140/62
[2018-06-07 13:18] LABS: FUNGUS CULTURE RESULT 1 Candida albicans (())
[2018-06-07 14:23] LABS: FUNGUS CULTURE RESULT 1 Candida albicans (())
[2018-06-07 17:06] VITALS: BP 104/59
[2018-06-07 20:29] VITALS: BP 124/84
[2018-06-08 03:34] LABS: BASOPHILS 0.2 % (0-2); EOSINOPHILS 1.7 % (0-7); HEMATOCRIT 30.8 % (36.0-48.0); HEMOGLOBIN 9.9 g/dL (12-16); IMMATURE GRANULOCYTES 0.9 % (0-5); MCH 29.4 pg (26.0-34.0); MCHC 32.1 g/dL (31.0-37.0); MCV 91.4 fL (80.0-100.0); MEAN PLATELET VOLUME 8.7 fL (7.4-10.4); MONOCYTES 7.5 % (2-11); NEUTROPHILS 54.7 % (40-80); PLATELET COUNT 350 10x3/uL (130-400); RBC 3.37 10x6/uL (4.00-5.40); RDW 15.1 % (11.5-14.5); WBC 12.1 10x3/uL (4.8-10.8)
[2018-06-08 03:41] LABS: CALC OSMOLALITY 276 mosm/kg (275-300); CALCIUM 8.5 mg/dL (8.5-10.1); CARBON DIOXIDE 26.7 mmol/L (21.0-32.0); CHLORIDE - SERUM 103 mmol/L (98-107); CREATININE - SERUM 0.6 mg/dL (0.6-1.3); GLUCOSE 101 mg/dL (74-106); POTASSIUM - SERUM 3.9 mmol/L (3.5-5.1); SODIUM 138 mmol/L (136-145); UREA NITROGEN 14 mg/dL (7-18); eGFR NON AFRICAN AMERICAN > 90 mL/min (90-120)
[2018-06-08 05:12] VITALS: BP 138/70
[2018-06-08 05:18] VITALS: BP 154/70
[2018-06-08 08:45] VITALS: BP 135/91
[2018-06-08 12:45] VITALS: BP 144/78
[2018-06-08 20:00] VITALS: BP 158/88
[2018-06-09] VITALS: BP 116/66
[2018-06-09 04:00] VITALS: BP 128/67
[2018-06-09 09:12] VITALS: BP 143/99
[2018-06-09 12:39] LABS: CALC OSMOLALITY 274 mosm/kg (275-300); CALCIUM 8.5 mg/dL (8.5-10.1); CARBON DIOXIDE 26.1 mmol/L (21.0-32.0); CHLORIDE - SERUM 102 mmol/L (98-107); GLUCOSE 132 mg/dL (74-106); POTASSIUM - SERUM 3.9 mmol/L (3.5-5.1); SODIUM 136 mmol/L (136-145); UREA NITROGEN 15 mg/dL (7-18); eGFR NON AFRICAN AMERICAN 85 mL/min (90-120)
[2018-06-09 12:41] LABS: CREATININE - SERUM 0.8 mg/dL (0.6-1.3)
[2018-06-09 14:37] LABS: BASOPHILS 0 % (0-2); EOSINOPHILS 0.2 % (0-7); HEMATOCRIT 31.8 % (36.0-48.0); HEMOGLOBIN 10.4 g/dL (12-16); IMMATURE GRANULOCYTES 0.8 % (0-5); LYMPHOCYTES 14.4 % (15-50); MCH 29.5 pg (26.0-34.0); MCHC 32.7 g/dL (31.0-37.0); MCV 90.1 fL (80.0-100.0); MEAN PLATELET VOLUME 9.6 fL (7.4-10.4); MONOCYTES 6.7 % (2-11); NEUTROPHILS 77.9 % (40-80); PLATELET COUNT 349 10x3/uL (130-400); RBC 3.53 10x6/uL (4.00-5.40); RDW 15.4 % (11.5-14.5); WBC 10.4 10x3/uL (4.8-10.8)
[2018-06-09] MEDS ORDERED: NORCO 7.5/325 T1 TA1 PO (15:05)
[2018-06-09] MEDS ORDERED: Nicoderm [PBKC] TRANSDERM (15:14)
[2018-06-09] MEDS ORDERED: IPRAT-ALBUT 0.5-3 ML UPD (15:45)
[2018-06-22 11:20] LABS: FUNGUS MYCOLOGY CULTURE Final report (())
[2018-06-28 08:18] LABS: FUNGUS MYCOLOGY CULTURE Final report (())
== END 2018-06-09 17:41 | disposition home health service (06) | DRG 4 ==
LOC: D.ER 20:47 → D.ICU 22:27 → D.MS 06-05 19:29
PROVIDERS: Emergency Medicine; Family Medicine; Internal Medicine Nephrology; Internal Medicine Pulmonary Disease
PROC: 5A1955Z Respiratory Ventilation, Greater than 96 Consecutive Hours (ICD-10-PCS; 2018-05-11)
PROC: 0BH17EZ Insertion of Endotracheal Airway into Trachea, Via Natural or Artificial Opening (ICD-10-PCS; 2018-05-11)
PROC: 0B113F4 Bypass Trachea to Cutaneous with Tracheostomy Device, Percutaneous Approach (ICD-10-PCS; principal; 2018-05-18)
PROC: 0DH63UZ Insertion of Feeding Device into Stomach, Percutaneous Approach (ICD-10-PCS; 2018-05-19)
PROC: 0DJ08ZZ Inspection of Upper Intestinal Tract, Via Natural or Artificial Opening Endoscopic (ICD-10-PCS; 2018-05-19)
PROC: 0B9H7ZX Drainage of Lung Lingula, Via Natural or Artificial Opening, Diagnostic (ICD-10-PCS; 2018-05-25)
PROC: 0B9D7ZX Drainage of Right Middle Lung Lobe, Via Natural or Artificial Opening, Diagnostic (ICD-10-PCS; 2018-05-25)
PROC: 0B9B8ZZ Drainage of Left Lower Lobe Bronchus, Via Natural or Artificial Opening Endoscopic (ICD-10-PCS; 2018-05-31)
PROC: 0B948ZZ Drainage of Right Upper Lobe Bronchus, Via Natural or Artificial Opening Endoscopic (ICD-10-PCS; 2018-05-31)
PROC: 0B988ZZ Drainage of Left Upper Lobe Bronchus, Via Natural or Artificial Opening Endoscopic (ICD-10-PCS; 2018-05-31)
PROC: 0B938ZZ Drainage of Right Main Bronchus, Via Natural or Artificial Opening Endoscopic (ICD-10-PCS; 2018-05-31)
PROC: 0B978ZZ Drainage of Left Main Bronchus, Via Natural or Artificial Opening Endoscopic (ICD-10-PCS; 2018-05-31)
PROC: 0B968ZZ Drainage of Right Lower Lobe Bronchus, Via Natural or Artificial Opening Endoscopic (ICD-10-PCS; 2018-05-31)
DX: A41.9 Sepsis, unspecified organism (principal); J96.02 Acute respiratory failure with hypercapnia; J96.01 Acute respiratory failure with hypoxia; J15.212 Pneumonia due to Methicillin resistant Staphylococcus aureus; Z68.42 Body mass index [BMI] 45.0-49.9, adult; S27.399A Other injuries of lung, unspecified, initial encounter; E87.0 Hyperosmolality and hypernatremia; X58.XXXA Exposure to other specified factors, initial encounter; E66.01 Morbid (severe) obesity due to excess calories; G40.909 Epilepsy, unspecified, not intractable, without status epilepticus; Z87.891 Personal history of nicotine dependence; I10 Essential (primary) hypertension; D64.9 Anemia, unspecified; J45.909 Unspecified asthma, uncomplicated; E87.6 Hypokalemia